=== PATIENT | female | born 1975 | race Two or more races ===

== ENCOUNTER 2019-11-21 06:08 | Emergency (ER) | payer SELFPAY ==
[~2019-11-21] VITALS: Ht 167.6 cm; Wt 67.4 kg
[2019-11-21 06:12] VITALS: Ht 167.6 cm; Wt 67.4 kg
[2019-11-21 06:51] VITALS: BP 122/82
== END 2019-11-21 06:52 | disposition home or self-care (01) ==
LOC: ED 06:08
DX: K04.7 Periapical abscess without sinus (principal); Z98.890 Other specified postprocedural states